=== PATIENT | female | born 1960 | race Caucasian/White ===

== ENCOUNTER → 2020-09-17 | Day surgery (SDC) | payer OTHER ==
[~2020-09-17] MED LIST: IBANDRONATE SO150 MG PO; ONDANSETRON ODT8 MG PO; OSCIMIN SR0.375 MG PO; VENLAFAXINE H37.5 M1 PO
[2020-09-17 09:52] LABS: ALBUMIN 3.9 g/dL (3.4-5.0); BILIRUBIN - TOTAL 0.3 mg/dL (0.2-1.0); BUN/CREAT RATIO (CALC) 12.7 RATIO; CREATININE 0.79 mg/dL (0.51-0.95); GLOBULIN (CALCULATION) 3.6 g/dL; POTASSIUM 3.8 mmol/L (3.5-5.1); TOTAL PROTEIN 7.5 g/dL (6.4-8.2)
[2020-09-17 09:58] LABS: HCT 41.9 % (37.0-47.0); HGB 13.5 g/dl (12.5-16.0); MCHC 32.2 g/dL (32.0-36.0); MCV 90.1 fL (78.0-100.0); MPV 10.6 fL (6.0-9.5); RBC 4.65 M/uL (4.20-5.40); RDW 13.1 % (11.5-14.0); WBC 5.7 K/uL (4.0-10.5)
== END | disposition home or self-care (01) ==
LOC: FAS 08:42
PROVIDERS: Surgery
DX: K21.00 Gastro-esophageal reflux disease with esophagitis, without bleeding (principal); K29.70 Gastritis, unspecified, without bleeding; K58.9 Irritable bowel syndrome, unspecified; U07.1 COVID-19; M19.90 Unspecified osteoarthritis, unspecified site; Z88.0 Allergy status to penicillin; Z82.49 Family history of ischemic heart disease and other diseases of the circulatory system; Z98.890 Other specified postprocedural states; Z82.5 Family history of asthma and other chronic lower respiratory diseases
CPT/HCPCS: 36415; 76705; 80053; J1610; J2704; J7120

== ENCOUNTER 2021-09-16 13:19 | Emergency (ER) | payer OTHER ==
[~2021-09-16] VITALS: Ht 170.2 cm; Wt 77.1 kg
[2021-09-16 14:52] LABS: BASOPHIL 0.4 % (0-2); EOSINOPHIL 0.2 % (0-5); HCT 41.5 % (37.0-47.0); HGB 13.1 g/dl (12.5-16.0); LYMPHOCYTE 22.2 % (15-48); MCH 27.8 pg (25.0-31.0); MCHC 31.6 g/dL (32.0-36.0); MCV 87.9 fL (78.0-100.0); MPV 10.5 fL (6.0-9.5); NEUTROPHIL 68.1 % (41-80); NRBC 0; PLT 308 K/uL (150-400); RBC 4.72 M/uL (4.20-5.40); RDW 14.1 % (11.5-14.0); WBC 8.1 K/uL (4.0-10.5)
[2021-09-16 15:16] LABS: ALBUMIN 4.1 g/dL (3.4-5.0); BILIRUBIN - TOTAL 0.3 mg/dL (0.2-1.0); BUN/CREAT RATIO (CALC) 12.2 RATIO; CREATININE 0.82 mg/dL (0.51-0.95); POTASSIUM 3.8 mmol/L (3.5-5.1); TOTAL PROTEIN 8.1 g/dL (6.4-8.2)
== END 2021-09-16 16:01 | disposition other institution (70) ==
LOC: FER 13:19
PROVIDERS: Nurse Practitioner Family
DX: K04.7 Periapical abscess without sinus (principal); L02.11 Cutaneous abscess of neck; R13.10 Dysphagia, unspecified; Z88.0 Allergy status to penicillin
CPT/HCPCS: 36415; 80053; 85025; J1100; J7030